=== PATIENT | female | born 1940 | race Caucasian/White ===

== ENCOUNTER → 2016-11-11 | Outpatient (REF) | LOC: ZLAB.WCH 14:08 | DX: Z01.89 Encounter for other specified special examinations (principal) ==

== ENCOUNTER → 2017-12-08 | Outpatient (REF) | LOC: ZLAB.WCH 16:01 | DX: Z01.89 Encounter for other specified special examinations (principal) ==

== ENCOUNTER → 2020-09-19 | Outpatient (REF) ==
[2020-09-19 17:38] LABS: CLOSTRIDIUM DIFF A/B NEG; CLOSTRIDIUM DIFF A/B INTERP No C.diff present
== END ==
LOC: ZLAB.WCH 15:47
PROVIDERS: Family Medicine
DX: Z01.89 Encounter for other specified special examinations (principal)

== ENCOUNTER → 2023-06-04 | Outpatient (CLI) | payer MEDICARE, BC | LOC: COL.RAD 12:33 | DX: R10.32 Left lower quadrant pain (principal); Z85.51 Personal history of malignant neoplasm of bladder ==